=== PATIENT | male | born 1960 | race African-American/Black ===

== ENCOUNTER 2018-01-04 14:51 | Observation (INO) | payer BC, OTHER ==
[2018-01-04] MEDS ORDERED: ASPIRIN 81 MG CHEWABLE TABLET ONE (15:21)
--- NOTE | 2018-01-04 15:54 | RAD REPORT ---
EXAM DESCRIPTION: RAD - Chest Single View - 01/04/2018 3:46 pm CLINICAL HISTORY: Diaphoretic, shortness of breath COMPARISON: None. TECHNIQUE: AP portable chest image was obtained 1542 hours . FINDINGS: No focal lung parenchymal process. No failure or volume overload. No mediastinal or hilar mass or lymphadenopathy suspected. Trachea is midline. Heart and vasculature are normal. No pneumotho rax or measurable pleural effusion. No gross bony abnormality seen. No acute aortic findings suspecte d. IMPRESSION: No acute cardiopulmonary process.
[2018-01-04 15:56] LABS: Absolute Lymphocytes (CBC) 1.8 K/uL (0.7-4.9); Absolute Monocytes 0.5 K/uL (0.1-1.3); Absolute Neutrophil 1.3 K/uL (1.8-8.0); Basophils % 0.8 % (0-1.3); Eosinophils % 2.4 % (0-4.4); Hematocrit 45.2 % (39.6-49.0); Lymphocytes % 48.8 % (15.3-44.8); MCH 23.2 pg (27.0-35.0); MCV 73.8 fL (80-100); MPV 8.7 fL (7.6-11.3); Monocytes % 12.6 % (3.3-12.3); RBC Red Blood Cell Count 6.13 M/uL (4.33-5.43)
[2018-01-04 15:57] LABS: Bicarbonate 26 mEq/L (21-31); Glucose Level 104 mg/dL (65-120); Potassium 4.2 mEq/L (3.6-5.0); Sodium Level 144 mEq/L (135-145)
[2018-01-04 16:04] LABS: ALT/SGPT 26 IU/L (10-60); AST/SGOT 26 IU/L (10-42); Albumin 4.3 g/dL (3.2-5.5); Alkaline Phosphatase 53 IU/L (42-121); BUN Blood Urea Nitrogen 13 mg/dL (6-20); Bilirubin Direct 0.1 mg/dL (0-0.2); Bilirubin Total 0.6 mg/dL (0.3-1.2); Creatine Phosphokinase 846 IU/L (22-269); Magnesium 1.7 mg/dL (1.8-2.5)
[2018-01-04 16:07] LABS: CKMB Creatine Kinase MB 2.9 ng/ml (0.3-4.0)
--- NOTE | 2018-01-04 16:19 | EKG ---
Test Date: 2018-01-04 Test Time: 15:17:38 Animal Eviscerator: YAMILE MEASUREMENT RESULTS: Intervals: Rate: 75 AL: 152 QRSD: 84 QT: 368 QTc: 410 [place]: P: 43 AL: 152 QRS: 38 T: 14 INTERPRETIVE STATEMENTS: Normal sinus rhythm Nonspecific T wave abnormality Abnormal ECG No previous ECG available for comparison Electronically Signed On 01-04-18 16:18:43 CDT by Perry Apple
[2018-01-04] MEDS ORDERED: NA CHLORIDE 0.9% 500 ML ONE (16:29)
[2018-01-04] MEDS ORDERED: ONDANSETRON 4 MG/2 ML VIAL ONE (16:29)
[2018-01-04 16:58] LABS: Protime INR 1.19
[2018-01-04] MEDS ORDERED: Magnesium Sulfate 2gm IVPB 2 G/50 ML BAG IV ONE (17:11)
[2018-01-04] MEDS ORDERED: NA CHLORIDE 0.9% 1,000 ML ONE (17:54)
--- NOTE | 2018-01-04 18:02 | EDPHYS ---
Physician Documentation [facility] Name: Shaka Egan Age: 57 yrs Sex: Male : 1960 Arrival Date: 01/04/2018 Time: 14:58 Bed 28 Private MD: ED Physician Kale Fields HPI: 01/04 15:32 This 57 yrs old Black Male presents to ER via Ambulatory with complaints of Shortness snw Of Breath. 15:32 The patient has shortness of breath at rest. Onset: The symptoms/episode began/occurred snw suddenly. Duration: The symptoms are continuous. The patient's shortness of breath has no apparent modifying factors. Associated signs and symptoms: Pertinent positives: diaphoresis. Severity of symptoms: At their worst the symptoms were moderate. The patient has not experienced similar symptoms in the past. It is unknown whether or not the patient has recently seen a physician, sees Dr. Liriano. Historical: - Allergies: 15:01 No Known Allergies; hj - Home Meds: 15:46 lisinopril 5 mg Oral tab 1 tab once daily [Active]; levothyroxine 50 mcg tab 1 tab once lk1 daily [Active]; simvastatin 20 mg Oral tab 1 tab once daily [Active]; potassium chloride 20 mEq Oral TbER 1 tab once daily [Active]; furosemide 40 mg Oral tab 1 tab once daily [Active]; - PMHx: 15:01 Diabetes - NIDDM; Hypertension; Hyperlipidemia; hj - PSHx: 15:01 None; hj - Immunization history:: Adult Immunizations up to date. - Social history:: Smoking status: Patient/guardian denies using tobacco. ROS: 15:30 Eyes: Negative for injury, pain, redness, and discharge, ENT: Negative for injury, snw pain, and discharge, Neck: Negative for injury, pain, and swelling, Cardiovascular: Negative for chest pain, palpitations, and edema. 15:30 Abdomen/GI: Negative for abdominal pain, nausea, vomiting, diarrhea, and constipation, Back: Negative for injury and pain, : Negative for injury, bleeding, discharge, and swelling, MS/Extremity: Negative for injury and deformity, Neuro: Negative for headache, weakness, numbness, tingling, and seizure. 15:30 Constitutional: Positive for shortness of breath and something just feels "off". 15:30 Respiratory: Positive for shortness of breath, at rest. 15:30 Skin: Positive for diaphoresis. Exam: 15:26 Head/Face: Normocephalic, atraumatic. Eyes: Pupils equal round and reactive to light, snw extra-ocular motions intact. Lids and lashes normal. Conjunctiva and sclera are non-icteric and not injected. Cornea within normal limits. Periorbital areas with no swelling, redness, or edema. ENT: Nares patent. No nasal discharge, no septal abnormalities noted. Tympanic membranes are normal and external auditory canals are clear. Oropharynx with no redness, swelling, or masses, exudates, or evidence of obstruction, uvula midline. Mucous membranes moist. Neck: Trachea midline, no thyromegaly or masses palpated, and no cervical lymphadenopathy. Supple, full range of motion without nuchal rigidity, or vertebral point tenderness. No Meningismus. Chest/axilla: Normal chest wall appearance and motion. Nontender with no deformity. No lesions are appreciated. Cardiovascular: Regular rate and rhythm with a normal S1 and S2. No gallops, murmurs, or rubs. Normal PMI, no JVD. No pulse deficits. 15:26 Back: No spinal tenderness. No costovertebral tenderness. Full range of motion. Skin: Warm, dry with normal turgor. Normal color with no rashes, no lesions, and no evidence of cellulitis. MS/ Extremity: Pulses equal, no cyanosis. Neurovascular intact. Full, normal range of motion. Neuro: Awake and alert, GCS 15, oriented to person, place, time, and situation. Cranial nerves II-XII grossly intact. Motor strength 5/5 in all extremities. Sensory grossly intact. Cerebellar exam normal. Normal gait. 15:26 Constitutional: The patient appears alert, awake, diaphoretic. 15:26 Respiratory: the patient does not display signs of respiratory distress, Respirations: no acute changes, Breath sounds: are clear throughout. Vital Signs: 15:02 BP 186 / 66; Pulse 81; Resp 18; Temp 98.5(TE); Pulse Ox 96% on R/A; Weight 127.01 kg; hj Height 5 ft. 9 in. (175.26 cm); Pain 0/10; 15:23 BP 97 / 65 RA Supine; Pulse 76; Resp 12; Pulse Ox 96% on R/A; lk1 15:30 BP 103 / 77 LA Supine; Pulse 74; Resp 10; Pulse Ox 93% on R/A; lk1 16:00 BP 90 / 65; Pulse 71; Resp 12; Pulse Ox 95% on R/A; lk1 16:30 BP 98 / 63; Pulse 68; Resp 14; Pulse Ox 99% on R/A; lk1 17:00 BP 110 / 74; Pulse 59; Resp 15; Pulse Ox 96% on R/A; lk1 17:30 BP 120 / 73; Pulse 69; Resp 15; Pulse Ox 99% on R/A; Pain 0/10; lk1 18:00 BP 111 / 74; Pulse 65; Resp 15; Pulse Ox 100% on R/A; Pain 0/10; lk1 18:30 BP 117 / 69; Pulse 66; Resp 14; Pulse Ox 99% on R/A; Pain 0/10; lk1 19:00 BP 115 / 79; Pulse 61; Resp 14 S; Pulse Ox 100% on R/A; lk1 20:00 BP 116 / 72; Pulse 66; Resp 15; Pulse Ox 99% on R/A; lk1 15:02 Body Mass Index 41.35 (127.01 kg, 175.26 cm) hj MDM: 15:08 Patient medically screened. snw 17:27 Data reviewed: vital signs, nurses notes. Data interpreted: Pulse oximetry: on room air snw is 93 %. Interpretation: hypoxia. Plan: O2 by NC applied. Counseling: I had a detailed discussion with the patient and/or guardian regarding: the historical points, exam findings, and any diagnostic results supporting the discharge/admit diagnosis, lab results, radiology results, the need for further work-up and treatment in the hospital. Physician consultation: Dr Vargas was called at 17:28, was contacted at 17:28, regarding admission, to the telemetry unit. 01/04 15:08 Order name: Basic Metabolic Panel; Complete Time: 16:14 snw 01/04 15:08 Order name: BNP; Complete Time: 16:48 snw 01/04 15:08 Order name: CBC with Diff; Complete Time: 16:14 snw 01/04 15:08 Order name: Ckmb; Complete Time: 16:14 snw 01/04 15:08 Order name: CPK; Complete Time: 16:14 snw 01/04 15:08 Order name: LFT's; Complete Time: 16:14 snw 01/04 15:08 Order name: Magnesium; Complete Time: 16:14 w 01/04 15:08 Order name: PT-INR; Complete Time: 17:29 w 01/04 15:08 Order name: Ptt, Activated; Complete Time: 17:29 snw 01/04 15:08 Order name: Troponin (emerg Dept Use Only); Complete Time: 16:14 snw 01/04 15:08 Order name: XRAY Chest (1 view); Complete Time: 15:56 w 01/04 16:51 Order name: CT Chest For PE Angio w 01/04 20:19 Order name: Urine Dipstick--Ancillary (enter results) rg2 01/04 20:29 Order name: Urine Dipstick-Ancillary; Complete Time: 20:29 EDMS 01/04 15:08 Order name: EKG; Complete Time: 15:28 w 01/04 15:08 Order name: Cardiac monitoring; Complete Time: 15:28 w 01/04 15:08 Order name: EKG - Nurse/Tech; Complete Time: 15:28 w 01/04 15:08 Order name: IV Saline Lock; Complete Time: 15:28 w 01/04 15:08 Order name: Labs collected and sent; Complete Time: 15:28 w 01/04 15:08 Order name: O2 Per Protocol; Complete Time: 15:28 w 01/04 15:08 Order name: O2 Sat Monitoring; Complete Time: 15:28 w 01/04 15:08 Order name: Urine Dipstick-Ancillary (obtain specimen); Complete Time: 20:02 w 01/04 15:15 Order name: Misc. Order: Please get home meds in computer; Complete Time: 15:42 snw 01/04 18:46 Order name: CT; Complete Time: 18:50 EDMS 01/04 20:56 Order name: EKG; Complete Time: 20:56 w 01/04 16:14 Order name: Labs - recollect needed; Complete Time: 16:28 iw Administered Medications: 15:25 Drug: Aspirin Chewable Tablet 324 mg Route: PO; lk1 15:42 Follow up: Response: No adverse reaction lk1 16:30 Drug: NS 0.9% 500 ml Route: IV; Rate: bolus; Site: left antecubital; lk1 17:15 Follow up: Response: No adverse reaction; IV Status: Completed infusion lk1 16:31 Drug: Zofran 4 mg Route: IVP; Site: left antecubital; lk1 16:50 Follow up: Response: No adverse reaction; Marked relief of symptoms lk1 17:55 Drug: Magnesium Sulfate 1 grams Route: IVPB; Infused Over: 1 hrs; Site: left lk1 antecubital; 18:55 Follow up: Response: No adverse reaction; IV Status: Completed infusion lk1 17:55 Drug: NS 0.9% 1000 ml Route: IV; Rate: 125 ml/hr; Site: left antecubital; lk1 21:32 Follow up: Response: No adverse reaction; IV Status: Infusion continued upon admission lk1 Point of Care Testing: Blood Glucose: 15:02 Blood Glucose: 88 mg/dL; Ranges: Critical Glucose Levels:Adult <50 mg/dl or >400 mg/dl <40 mg/dl or >180 mg/dl Disposition: 01/05 06:58 Co-signature as Attending Physician, Kale Fields MD I agree with the assessment and tx plan of care. Disposition: 18 17:30 Hospitalization ordered by Nayan Glez for Observation. Preliminary diagnosis are Rhabdomyolysis, Hypomagnesemia. - Bed requested for Telemetry/MedSurg (observation). - Status is Observation. lk1 - Condition is Stable. - Problem is new. - Symptoms are unchanged. UTI on Admission? No Signatures: Dispatcher [employer] EDSD Mahnaz Roberts, CEILING INSTALLER-C CEILING INSTALLER-Csnw Eliza Michaels RN RN Juan Carlos Siu RN RN Neida Matthew RN RN lk1 Dana Llamas RN RN df Appiah, William, MD MD wa Corrections: (The following items were deleted from the chart) 01/04 15:46 15:01 Home Meds: Unable to obtain; lk1 19:31 17:30 Hospitalization Ordered by Nayan Glez DO for Observation. Preliminary df diagnosis is Rhabdomyolysis; Hypomagnesemia. Bed requested for Telemetry/MedSurg (observation). Status is Observation. Condition is Stable. Problem is new. Symptoms are unchanged. UTI on Admission? No. snw 21:38 19:31 01/04/2018 17:30 Hospitalization Ordered by Nayan Glez DO for Observation. lk1 Preliminary diagnosis is Rhabdomyolysis; Hypomagnesemia. Bed requested for Telemetry/MedSurg (observation). Status is Observation. Condition is Stable. Problem is new. Symptoms are unchanged. UTI on Admission? No. df
--- NOTE | 2018-01-04 18:02 | ER ---
Nurse's Notes [facility] Name: Shaka Egan Age: 57 yrs Sex: Male : 1960 Arrival Date: 01/04/2018 Time: 14:58 Bed 28 Private MD: Diagnosis: Rhabdomyolysis;Hypomagnesemia Presentation: 01/04 14:58 Presenting complaint: Patient states: karina been sweating profusely for the last few hj minutes, im in a cool environment, i feel sore in both arms; denies numbness and tingling, denies chest pain, reports SOB; denies fever;. Transition of care: patient was not received from another setting of care. Onset of symptoms was January 04, 2018. Initial Sepsis Screen: Does the patient meet any 2 criteria? No. Patient's initial sepsis screen is negative. Does the patient have a suspected source of infection? No. Patient's initial sepsis screen is negative. Care prior to arrival: None. 14:58 Method Of Arrival: Ambulatory 14:58 Acuity: FRANSISCA 3 hj Triage Assessment: 15:01 General: Appears in no apparent distress. uncomfortable, Behavior is calm, cooperative, hj appropriate for age. Pain: Denies pain. Respiratory: Reports shortness of breath Onset: The symptoms/episode began/occurred today, the patient has mild shortness of breath. Historical: - Allergies: 15:01 No Known Allergies; - Home Meds: 15:46 lisinopril 5 mg Oral tab 1 tab once daily [Active]; levothyroxine 50 mcg tab 1 tab once lk1 daily [Active]; simvastatin 20 mg Oral tab 1 tab once daily [Active]; potassium chloride 20 mEq Oral TbER 1 tab once daily [Active]; furosemide 40 mg Oral tab 1 tab once daily [Active]; - PMHx: 15:01 Diabetes - NIDDM; Hypertension; Hyperlipidemia; - PSHx: 15:01 None; hj - Immunization history:: Adult Immunizations up to date. - Social history:: Smoking status: Patient/guardian denies using tobacco. Screenin:46 Abuse screen: Denies threats or abuse. Denies injuries from another. Nutritional lk1 screening: No deficits noted. Tuberculosis screening: No symptoms or risk factors identified. Fall Risk None identified. Assessment: 15:02 Cardiovascular: Rhythm is. Respiratory: Airway is patent Respiratory effort is even, hj unlabored, Respiratory pattern is regular, symmetrical, 15:10 General: Appears in no apparent distress. Behavior is calm, cooperative, appropriate lk1 for age. Pain: Denies pain. Neuro: Level of Consciousness is awake, alert, obeys commands, Oriented to person, place, time, situation, Gait is steady, Speech is normal, Facial symmetry appears normal. Cardiovascular: Heart tones S1 S2 present Capillary refill is brisk Patient's skin is warm and dry. Cardiovascular: Reports diaphoresis, shortness of breath, Chest pain is denied. Respiratory: Airway is patent Respiratory effort is even, unlabored, Respiratory pattern is regular, symmetrical, Breath sounds are clear bilaterally. GI: No signs and/or symptoms were reported involving the gastrointestinal system. GI: Abdomen is round non-distended, Bowel sounds present X 4 quads. : No signs and/or symptoms were reported regarding the genitourinary system. EENT: No signs and/or symptoms were reported regarding the EENT system. Derm: No signs and/or symptoms reported regarding the dermatologic system. Musculoskeletal: No signs and/or symptoms reported regarding the musculoskeletal system. Vital Signs: 15:02 BP 186 / 66; Pulse 81; Resp 18; Temp 98.5(TE); Pulse Ox 96% on R/A; Weight 127.01 kg; hj Height 5 ft. 9 in. (175.26 cm); Pain 0/10; 15:23 BP 97 / 65 RA Supine; Pulse 76; Resp 12; Pulse Ox 96% on R/A; lk1 15:30 BP 103 / 77 LA Supine; Pulse 74; Resp 10; Pulse Ox 93% on R/A; lk1 16:00 BP 90 / 65; Pulse 71; Resp 12; Pulse Ox 95% on R/A; lk1 16:30 BP 98 / 63; Pulse 68; Resp 14; Pulse Ox 99% on R/A; lk1 17:00 BP 110 / 74; Pulse 59; Resp 15; Pulse Ox 96% on R/A; lk1 17:30 BP 120 / 73; Pulse 69; Resp 15; Pulse Ox 99% on R/A; Pain 0/10; lk1 18:00 BP 111 / 74; Pulse 65; Resp 15; Pulse Ox 100% on R/A; Pain 0/10; lk1 18:30 BP 117 / 69; Pulse 66; Resp 14; Pulse Ox 99% on R/A; Pain 0/10; lk1 19:00 BP 115 / 79; Pulse 61; Resp 14 S; Pulse Ox 100% on R/A; lk1 20:00 BP 116 / 72; Pulse 66; Resp 15; Pulse Ox 99% on R/A; lk1 15:02 Body Mass Index 41.35 (127.01 kg, 175.26 cm) ED Course: 14:58 Patient arrived in ED. hj 15:00 Triage completed. hj 15:02 Arm band placed on right wrist. hj 15:08 Mahnaz Roberts FNP-C is PHCP. snw 15:08 Kale Fields MD is Attending Physician. snw 15:17 Neida Matthew, EMMETT is Primary Nurse. lk1 15:32 EKG done, by food technician. reviewed by Mahnaz LARSEN. dt2 15:45 X-ray completed. Portable x-ray completed in exam room. Patient tolerated procedure ml well. 15:46 XRAY Chest (1 view) In Process Unspecified. EDMS 15:47 Patient has correct armband on for positive identification. Bed in low position. Call lk1 light in reach. Side rails up X 1. Adult w/ patient. equipment monitor phototypesetting on. Pulse ox on. NIBP on. 17:29 Nayan Glez DO is Hospitalizing Provider. snw 20:42 No provider procedures requiring assistance completed. Patient admitted, IV remains in lk1 place. No redness/swelling at site. Administered Medications: 15:25 Drug: Aspirin Chewable Tablet 324 mg Route: PO; lk1 15:42 Follow up: Response: No adverse reaction lk1 16:30 Drug: NS 0.9% 500 ml Route: IV; Rate: bolus; Site: left antecubital; lk1 17:15 Follow up: Response: No adverse reaction; IV Status: Completed infusion lk1 16:31 Drug: Zofran 4 mg Route: IVP; Site: left antecubital; lk1 16:50 Follow up: Response: No adverse reaction; Marked relief of symptoms lk1 17:55 Drug: Magnesium Sulfate 1 grams Route: IVPB; Infused Over: 1 hrs; Site: left lk1 antecubital; 18:55 Follow up: Response: No adverse reaction; IV Status: Completed infusion lk1 17:55 Drug: NS 0.9% 1000 ml Route: IV; Rate: 125 ml/hr; Site: left antecubital; lk1 21:32 Follow up: Response: No adverse reaction; IV Status: Infusion continued upon admission lk1 Point of Care Testing: Blood Glucose: 15:02 Blood Glucose: 88 mg/dL; Ranges: Outcome: 17:30 Decision to Hospitalize by Provider. snw 21:33 Admitted to Med/surg accompanied by tech, via wheelchair, room 217, with chart, Report lk1 called to RN 21:33 Condition: good 21:33 Discharge instructions given to patient, family, Instructed on the need for admit, Demonstrated understanding of instructions. 21:38 Patient left the ED. lk1 Signatures: Dispatcher [employer] EDMS Mahnaz Roberts, SHERIF-C CUSTOM MILLER-Jacqui Rodriguez Henry, RN RN Neida Matthew RN RN lk1 Erica Willoughby dt2 Corrections: (The following items were deleted from the chart) 15:46 15:01 Home Meds: Unable to obtain; lk1 18:14 18:01 BP 120 / 73; Pulse 69bpm; Resp 15bpm; Pulse Ox 99% RA; Pain 0/10; lk1 lk1
--- NOTE | 2018-01-04 18:45 | RAD REPORT ---
EXAM DESCRIPTION: CT - Chest For Pe Angio - 01/04/2018 6:25 pm CLINICAL HISTORY: Dyspnea, diaphoresis, shortness of breath, history of hypertension COMPARISON: Portable chest same date TECHNIQUE: Dynamically enhanced 3 mm thick images of the chest were obtained during administration o f approximately 150mL Isovue 370 IV contrast. Coronal and oblique reconstruction images were generate d and reviewed. Exam utilizes a protocol to evaluate the pulmonary arterial tree. All CT scans are performed using dose optimization technique as appropriate and may include automated exposure control or mA/KV adjustment according to patient size. FINDINGS: No pulmonary emboli are identified. The aorta as imaged shows no acute or suspicious finding. No pericardial thickening or effusion. Hear t size is upper normal. No ventriculomegaly for myocardial hyperplasia. No infiltrate or mass in the lung parenchyma. No pleural effusion or pleural thickening. No mediastinal or hilar suspicious masses. No chest wall masses or abnormal axillary lymphadenopathy. Bony degenerative changes are present. No pathologic or acute bone process seen. IMPRESSION: No pulmonary emboli identified. No other significant or suspicious findings.
[2018-01-04 20:29] LABS: Urine Blood 1+ (NEG); Urine Glucose 2+ (NEG); Urine Protein NEGATIVE (NEG); Urine Specific Gravity <1.005 (1.005-1.030); Urine pH 5.5 (5.0-7.0)
[2018-01-04] MEDS ORDERED: ACETAMINOPHEN 500 MG TAB PO PRN (21:03)
[2018-01-04] MEDS: NA CHLORIDE 0.9% 1,000 ML IV SCH (21:55)
[2018-01-05] MEDS: NA CHLORIDE 0.9% 1,000 ML IV SCH (05:13)
--- NOTE | 2018-01-05 05:20 | P.HP ---
Certification for Inpatient Patient admitted to: Observation With expected LOS: <2 Midnights Practitioner: I am a practitioner with admitting privileges, knowledge of patient current condition, hospital course, and medical plan of care. Services: Services provided to patient in accordance with Admission requirements found in Title 42 Section 412.3 of the Code of Federal Regulations Patient History Date of Service: 01/04/18 Reason for admission: dehydration History of Present Illness: Mr Egan is a 57 years old male with history of DM II, HTN, who after been working in a yard today, start feeling weak, become diaphoretic, and had some SOB. He denied any chest pain. No history of cough, nausea, vomiting fever or chills. In ER work up shows EKG with non-specific T waves abnormalities, low WBC count, no fever, CTA report no PE, no infiltrate. After receive a bag of IV fluids, the patient start feeling better. Allergies No Known Allergies Allergy (Verified 01/04/18 22:01) Home Medications: Empagliflozin [Jardiance] 10 mg PO DAILY 01/04/18 Furosemide 40 mg PO DAILY 01/04/18 Levothyroxine [Synthroid] 50 mcg PO [id number] 01/04/18 Lisinopril [Prinivil*] 5 mg PO DAILY 01/04/18 Metformin ER [Glucophage ER] 500 mg PO DAILY 01/04/18 Potassium Chloride 20 meq PO DAILY 01/04/18 Simvastatin 20 mg PO DAILY 01/04/18 - Past Medical/Surgical History Has patient received pneumonia vaccine in the past: Yes Diabetic: Yes -: Diabetes-NIDDM -: Hypertension -: Hyperlipidemia Past Surgical History: Reviewed- Non-Contributory - Family History Family History: Reviewed- Non-Contributory - Social History Smoking Status: Never smoker Alcohol use: Yes CD- Drugs: No Caffeine use: Yes Place of Residence: Home Review of Systems 10-point ROS is otherwise unremarkable Physical Examination - Vital Signs Temperature: 97.6 F Blood Pressure: 125/68 Pulse: 86 Respirations: 18 Pulse Ox (%): 95 - Physical Exam General: Alert, In no apparent distress HEENT: Atraumatic, PERRLA, Mucous membr. moist/pink, EOMI, Sclerae nonicteric Neck: Supple, 2+ carotid pulse no bruit, No LAD, Without JVD or thyroid abnormality Respiratory: Clear to auscultation bilaterally, Normal air movement Cardiovascular: Regular rate/rhythm, Normal S1 S2 Gastrointestinal: Normal bowel sounds, No tenderness Musculoskeletal: No tenderness Integumentary: No rashes Neurological: Normal gait, Normal speech, Normal strength at 5/5 x4 extr, Normal tone, Normal affect Lymphatics: No axilla or inguinal lymphadenopathy - Studies Laboratory Data (last 24 hrs) 01/04/18 16:19: PT 14.1 H, INR 1.19, APTT 26.5 01/04/18 15:31: WBC 3.7 L, Hgb 14.2, Hct 45.2, Plt Count 215 01/04/18 15:31: B-Natriuretic Peptide < 10 01/04/18 15:31: Sodium 144, Potassium 4.2, BUN 13, Creatinine 1.02, Glucose 104 , Magnesium 1.7 L, Total Bilirubin 0.6, AST 26, ALT 26, Alkaline Phosphatase 53 Assessment and Plan - Problems (Diagnosis) (1) Diabetes mellitus Current Visit: Yes Status: Acute Qualifiers: Diabetes mellitus type: type 2 Diabetes mellitus termite treater helper insulin use: without termite treater helper use Diabetes mellitus complication status: with unspecified complications Qualified Code(s): E11.8 - Type 2 diabetes mellitus with unspecified complications (2) HTN (hypertension) Current Visit: Yes Status: Acute Qualifiers: Hypertension type: essential hypertension Qualified Code(s): I10 - Essential (primary) hypertension (3) Volume depletion Current Visit: Yes Status: Acute - Plan Mr Egan will be admitted to the hospital due to volume depletion. He start feeling better after IV NS infusion. No obvious signs of infection. CAT chest showed no PE. Will evaluate overnight his response to fluids and resolution of symptoms. Eventually will go home in AM. - Advance Directives Does patient have a Living Will: No Does patient have a Durable POA for Healthcare: No - Code Status/Comfort Care Code Status Assessed: Yes Code Status: Full Code
[2018-01-05 06:45] LABS: Absolute Lymphocytes (CBC) 1.9 K/uL (0.7-4.9); Absolute Monocytes 0.8 K/uL (0.1-1.3); Absolute Neutrophil 3.3 K/uL (1.8-8.0); Basophils % 0.6 % (0-1.3); Eosinophils % 2.1 % (0-4.4); Hematocrit 41.4 % (39.6-49.0); Lymphocytes % 30.5 % (15.3-44.8); MCV 75.5 fL (80-100); MPV 8.7 fL (7.6-11.3); RBC Red Blood Cell Count 5.48 M/uL (4.33-5.43)
[2018-01-05 07:04] LABS: BUN Blood Urea Nitrogen 13 mg/dL (6-20); Bicarbonate 28 mEq/L (21-31); Glucose Level 93 mg/dL (65-120); Potassium 4.5 mEq/L (3.6-5.0); Sodium Level 143 mEq/L (135-145)
--- NOTE | 2018-01-05 08:25 | EKG ---
Test Date: 2018-01-04 Test Time: 21:00:34 [employer] Contact Printer: ARDEN MEASUREMENT RESULTS: Intervals: Rate: 63 OK: 164 QRSD: 88 QT: 384 QTc: 392 Fowler: P: 61 OK: 164 QRS: 53 T: 17 INTERPRETIVE STATEMENTS: Normal sinus rhythm Possible Left atrial enlargement Nonspecific T wave abnormality Abnormal ECG Compared to ECG 01/04/2018 15:17:38 No significant changes Electronically Signed On 01-05-18 08:23:27 CDT by Perry Apple
[2018-01-05] MEDS ORDERED: ASPIRIN EC 81 MG TAB PO SCH (09:00)
--- NOTE | 2018-01-05 10:56 | P.DS ---
Admission Date: 01/04/18 Discharge Date: 01/05/18 Disposition: ROUTINE DISCHARGE Discharge Condition: GOOD Reason for Admission: dehydration Consultations: cardiology Dr Apple Brief History of Present Illness: Mr Egan is a 57 years old male with history of DM II, HTN, who after been working in a yard today, start feeling weak, become diaphoretic, and had some SOB. He denied any chest pain. No history of cough, nausea, vomiting fever or chills. In ER work up shows EKG with non-specific T waves abnormalities, low WBC count, no fever, CTA report no PE, no infiltrate. After receive a bag of IV fluids, the patient start feeling better. Hospital Course: Patient was started on IV hydration.He was monitored on telemetry.His CK enzymes trended down.Symptoms improved and he was cleared by cardiology and discharged home in a stable condition. Vital Signs/Physical Exam: Temp Pulse Resp BP Pulse Ox 97.6 F 86 18 125/68 95 01/05/18 05:25 01/05/18 05:25 01/05/18 05:25 01/05/18 05:25 01/05/18 05:25 General: Alert, In no apparent distress, Oriented x3 HEENT: Atraumatic, Normocephalic Neck: Supple, JVD not distended, No Thyromegaly, No LAD Respiratory: Clear to auscultation bilaterally, Normal air movement Cardiovascular: No edema, Normal pulses, Regular rate/rhythm, Normal S1 S2, No gallops, No rubs, No murmurs Gastrointestinal: Normal bowel sounds, Soft and benign, W/out hepatosplenomegaly , No ascites, No tenderness Musculoskeletal: No clubbing, No swelling, No contractures, No erythema, No tenderness, No warmth Neurological: Normal strength at 5/5 x4 extr, Normal tone, Sensation intact Laboratory Data at Discharge: WBC 6.2 K/uL (4.3-10.9) D 01/05/18 06:08 Hgb 12.6 g/dL (13.6-17.9) L 01/05/18 06:08 Hct 41.4 % (39.6-49.0) 01/05/18 06:08 Plt Count 231 K/uL (152-406) 01/05/18 06:08 PT 14.1 SECONDS (9.5-12.5) H 01/04/18 16:19 INR 1.19 01/04/18 16:19 APTT 26.5 SECONDS (24.3-36.9) 01/04/18 16:19 Sodium 143 mEq/L (135-145) 01/05/18 06:08 Potassium 4.5 mEq/L (3.6-5.0) 01/05/18 06:08 BUN 13 mg/dL (6-20) 01/05/18 06:08 Creatinine 0.96 mg/dL (0.61-1.24) 01/05/18 06:08 Glucose 93 mg/dL (65-120) 01/05/18 06:08 Magnesium 1.7 mg/dL (1.8-2.5) L 01/04/18 15:31 Total Bilirubin 0.6 mg/dL (0.3-1.2) 01/04/18 15:31 AST 26 IU/L (10-42) 01/04/18 15:31 ALT 26 IU/L (10-60) 01/04/18 15:31 Alkaline Phosphatase 53 IU/L (42-121) 01/04/18 15:31 Troponin I < 0.03 ng/mL (<0.03) 01/05/18 00:41 B-Natriuretic Peptide < 10 pg/ml (<=100) 01/04/18 15:31 Home Medications: Empagliflozin [Jardiance] 10 mg PO DAILY 01/04/18 Furosemide 40 mg PO DAILY 01/04/18 Levothyroxine [Synthroid*] 50 mcg PO [id number] 01/04/18 Lisinopril [Prinivil*] 5 mg PO DAILY 01/04/18 Metformin ER [Glucophage ER*] 500 mg PO DAILY 01/04/18 Potassium Chloride 20 meq PO DAILY 01/04/18 Simvastatin 20 mg PO DAILY 01/04/18 Patient Discharge Instructions: Follow up with PCP in one week. stay hydrated. return to ER with new or worsening symptoms Diet: ADA Activity: Ad elly Physician Review: Patient Assessed, Agree with Above Assessment and Plan Time spent managing pt's care (in minutes): 30
--- NOTE | 2018-01-05 12:18 | EKG ---
Test Date: 2018-01-05 Test Time: 07:32:11 Header Set Up Operator: GREGORIO MEASUREMENT RESULTS: Intervals: Rate: 70 DE: 160 QRSD: 90 QT: 376 QTc: 406 Randolph: P: 56 DE: 160 QRS: 46 T: 11 INTERPRETIVE STATEMENTS: Normal sinus rhythm Nonspecific T wave abnormality Abnormal ECG Compared to ECG 01/04/2018 21:00:34 No significant changes Electronically Signed On 01-05-18 12:17:31 CDT by Perry Apple
--- NOTE | 2018-01-05 12:40 | CON ---
Identification: A 57-year-old man. Chief Complaint: Sweating. History Of Present Illness: Mr. Egan is a gentleman, who has diabetes and hypertension and dyslip idemia. No history of heart disease. He was working as a lawn and yard care businessman. He was ou tside, doing a lot of physical work. He never checks his blood sugar on his own, but he went to work without eating or drinking anything for breakfast or lunch and about 2:30 in the afternoon, he had f inished the job, was sitting in his truck when he started sweating. He started feeling jittery. Eloina rything was better as soon as he got to the emergency room had an IV done. The patient has not had a spell like that. There was no chest pain since he has been in the hospital. B-natriuretic peptide is normal. Blood sugars are 104 and 93. Cardiac enzymes are all normal. Total CK is elevated at 84 6 and 532, consistent with skeletal muscle injury. His initial blood pressure when he came to the [facility] was 97/65, later 90/65, and this morning after fluid hydration, it is 125/68, heart rate 68. The patient uses no tobacco. No illegal drugs. Physical Examination: Vital Signs: 5 feet 9 inches, 279 pounds. General: Obese, alert, oriented, pleasant. Lungs: Clear. Cardiac: Normal. Neck: Carotids, no bruit. Abdomen: Soft. Extremities: normal distal pulses. Outpatient Medications: Potassium chloride, simvastatin, lisinopril levothyroxine, furosemide, metfo rmin, and empagliflozin or Jardiance 10 mg daily. Impression: The patient probably got very dehydrated. He takes both Lasix and empagliflozin. Both medicines can cause dehydration. Under ideal circumstances, Mr. Egan was working outdoors on a hu mid day and not eating or drinking, so I think, we have a good explanation for his symptoms and it mi ght be good to do some outpatient testing. None of those needs to be done now. He has demonstrated, he is stable enough to go home. I would consider discontinuing the furosemide and giving him carefu l instructions to avoid habits that get him so dehydrated like he was. Nothing on the EKG or enzymes would suggest he requires further hospitalization. After Dr. Liriano sees him, perhaps make some adj ustments. He could probably have an outpatient echo and stress test. Thank you very much for your kind referral of Mr. Egan. I will follow him with you. NEETU Voice ID: [id number] Report ID: [id number]
== END 2018-01-05 12:35 | disposition home or self-care (01) ==
LOC: ER 14:51 → ERHOLD 17:31 → 2ND 19:42
PROVIDERS: ADMIT Internal Medicine; ATTEND Internal Medicine
DX: E86.0 Dehydration (principal); E11.9 Type 2 diabetes mellitus without complications; I10 Essential (primary) hypertension; E78.5 Hyperlipidemia, unspecified
CPT/HCPCS: 36415; 71045; 71275; 80048; 80076; 81003; 82550; 82553; 82962; 83735; 83880; 84443; 84484; 85025; 85610; 85730; 93005; 96361; 96365; 96375; 99285; G0378; J2405; J3475; J7030; Q9967

== ENCOUNTER 2024-08-31 16:09 | Emergency (ER) | payer OTHER ==
[2024-08-31 17:20] LABS: SARS-CoV-2 Antigen CONTROL BLUE LINE VIS/BG OK; SARS-CoV-2 Antigen Rapid Res Negative (Negative)
--- NOTE | 2024-08-31 17:39 | RAD REPORT ---
EXAM: Chest Pa And Lat (2 Views) HISTORY: Congestion;Cough COMPARISON: 01/04/2018 FINDINGS: LUNGS/PLEURA: Mild opacities are present in the lingula. MEDIASTINUM: The mediastinal silhouette is within normal limits. CARDIAC: The cardiac silhouette is within normal limits. UPPER ABDOMEN: No significant abnormality. BONES: No acute fracture. LINES/TUBES/OTHER: N/A IMPRESSION: Mild opacities in the lingula could reflect mild or early pneumonia.
[2024-08-31] MEDS ORDERED: ALBUTEROL 2.5 MG/3 ML NEB SOL ONE (17:57)
[2024-08-31] MEDS ORDERED: IPRATROPIUM BROM 0.5MG/2.5ML ONE (17:57)
--- NOTE | 2024-08-31 17:57 | EDPHYS ---
Physician Documentation [facility] Name: Shaka Egan Age: 63 yrs Sex: Male : 1960 Arrival Date: 08/31/2024 Time: 16:09 Bed 18 Private MD: ED Physician Matty Gomez HPI: 08/31 16:59 This 63 yrs old Black Male presents to ER via Ambulatory with complaints of Cough, sb4 Congestion, Wheezing. 17:31 Patient reports cough, congestion, and wheezing for about 3 to 4 days now. States that sb4 his mother is currently hospitalized with RSV. He just wants to make sure that he is not going to spread anything to her when she gets home. He denies any chest pain or shortness of breath. Historical: - Allergies: 16:40 No Known Allergies; hb - PMHx: 16:40 Diabetes - NIDDM; Hyperlipidemia; Hypertension; hb - PSHx: 16:40 None; hb - Immunization history:: Adult Immunizations not immunized. - Infectious Disease History:: Denies. - Social history:: Smoking status: Patient denies any tobacco usage or history of. ROS: 17:31 Constitutional: Negative for fever, chills, and weight loss, sb4 17:31 ENT: Positive for sinus congestion, 17:31 Respiratory: Positive for cough, wheezing, 17:31 All other systems are negative, Exam: 17:31 Constitutional: This is a well developed, well nourished patient who is awake, alert, sb4 and in no acute distress. Head/Face: Normocephalic, atraumatic. Eyes: Extra-ocular motions intact. Periorbital areas with no swelling, redness, or edema. ENT: Mucous membranes moist. Cardiovascular: Regular rate and rhythm with a normal S1 and S2. Abdomen/GI: Soft, non-tender, no distension. Skin: Warm, dry with normal turgor. Normal color with no rashes, no lesions, and no evidence of cellulitis. 17:31 Respiratory: the patient does not display signs of respiratory distress, Respirations: normal, Breath sounds: bronchial sounds, that are moderate, are heard diffusely, Vital Signs: 16:39 BP 184 / 98; Pulse 84; Resp 18; Temp 97.7(TE); Pulse Ox 94% on R/A; Weight 124.74 kg; hb Height 5 ft. 9 in. ; Pain 2/10; 18:10 BP 172 / 84; Pulse 93; Resp 18; Pulse Ox 100% on 8 lpm Nebulizer Mask; ld1 16:39 Body Mass Index 40.61 (124.74 kg, 175.26 cm) hb 16:39 Pain Scale: Adult hb MDM: 16:38 Medical Screening Exam initiated sb4 17:40 Data reviewed: vital signs, nurses notes, lab test result(s), radiologic studies, and sb4 as a result, I will discharge patient. Counseling: I had a detailed discussion with the patient and/or guardian regarding the historical points, exam findings, and any diagnostic results supporting the discharge/admit diagnosis, lab results, radiology results, to return to the emergency department if symptoms worsen or persist or if there are any questions or concerns that arise at home. 08/31 16:43 Order name: SARS RAPID; Complete Time: 17:26 sb4 08/31 16:43 Order name: Flu; Complete Time: 17:26 sb4 08/31 16:43 Order name: RSV; Complete Time: 17:26 sb4 08/31 16:43 Order name: Chest Pa And Lat (2 Views) XRAY; Complete Time: 17:40 sb4 Administered Medications: 18:09 Drug: DuoNeb Nebulize (3:1) (2.5 mg - 0.5 mg) 3 ml Nebulizer once Route: Nebulizer; ld1 18:24 Follow up: Response: No adverse reaction ld1 18:09 Drug: Rocephin (cefTRIAXone) IM 1 grams IM once Route: IM; Site: right deltoid; ld1 18:23 Follow up: Response: No adverse reaction ld1 18:09 Drug: AZITHromycin PO 500 mg PO once Route: PO; ld1 18:23 Follow up: Response: No adverse reaction ld1 Disposition: 21:25 Co-signature as Attending Physician, Matty Gomez MD I agree with the assessment and jarrod plan of care. Disposition Summary: 08/31/24 17:56 Discharge Ordered Notes: Location: Home sb4 Problem: an ongoing problem sb4 Symptoms: have improved sb4 Condition: Stable sb4 Diagnosis - Respiratory syncytial virus as the cause of diseases classified elsewhere sb4 - Pneumonia, unspecified organism sb4 Followup: sb4 - With: Emergency Department - When: As needed - Reason: Trouble breathing, Worsening of condition Discharge Instructions: - Discharge Summary Sheet sb4 - Community-Acquired Pneumonia, Adult, [id number] sb4 - Respiratory Syncytial Virus Infection, Adult sb4 Forms: - Antibiotic Education sb4 - Patient Portal Instructions sb4 - Leadership Thank You Letter sb4 Prescriptions: - albuterol sulfate 90 mcg/actuation Inhalation HFA Aerosol Inhaler - inhale 1 inhalation INHALATION route every 4 to 6 hours as needed for sb4 wheezing/sob; 1 Applicator; Refills: 0, Product Selection Permitted - azithromycin 250 mg Oral tablet - take 1 tablet ORAL route daily for 4 days start on day 2 of therapy; 4 tablet; sb4 Refills: 0, Product Selection Permitted - Augmentin 875-125 mg Oral tablet - take 1 tablet ORAL route every 12 hours for 7 days; 14 tablet; Refills: 0, sb4 Product Selection Permitted Signatures: Dispatcher [employer] EDMS Matty Gomez MD MD cha Baxter, Heather RN RN Negar Strickland RN RN ld1 Rosie Yoo PA-C PA-C sb4 Corrections: (The following items were deleted from the chart) 16:43 16:43 SARS-COV-2 Antigen Rapid+I.LAB.BRZ ordered. EDMS EDMS 16:43 16:43 Influenza Screen (A \T\ B)+BA.LAB.BRZ ordered. EDMS EDMS 16:43 16:43 Respiratory Syncytial Virus Ag+BA.LAB.BRZ ordered. EDMS EDMS 16:44 16:44 Chest Pa And Lat (2 Views)+RAD.RAD.BRZ ordered. EDMS EDMS
--- NOTE | 2024-08-31 17:57 | ER ---
Nurse's Notes [facility] Name: Shaka Egan Age: 63 yrs Sex: Male : 1960 Arrival Date: 08/31/2024 Time: 16:09 Bed 18 Private MD: Diagnosis: Respiratory syncytial virus as the cause of diseases classified elsewhere;Pneumonia, unspecified organism Presentation: 08/31 16:39 Chief complaint: Cough, congestin, and SOB x 3 days. Coronavirus screen: Client hb presents with at least one sign or symptom that may indicate coronavirus-19. Provider contacted for isolation considerations. Ebola Screen: No symptoms or risks identified at this time. Initial Sepsis Screen: Does the patient meet any 2 criteria? No. Patient's initial sepsis screen is negative. Does the patient have a suspected source of infection? No. Patient's initial sepsis screen is negative. Risk Assessment: Do you want to hurt yourself or someone else? Patient reports no desire to harm self or others. Onset of symptoms was August 28, 2024. 16:39 Method Of Arrival: Ambulatory hb 16:43 Acuity: FRANSISCA 3 hb Historical: - Allergies: 16:40 No Known Allergies; hb - PMHx: 16:40 Diabetes - NIDDM; Hyperlipidemia; Hypertension; hb - PSHx: 16:40 None; hb - Immunization history:: Adult Immunizations not immunized. - Infectious Disease History:: Denies. - Social history:: Smoking status: Patient denies any tobacco usage or history of. Screenin:10 [facility] ED Fall Risk Assessment (Adult) History of falling in the last 3 months, ld1 including since admission No falls in past 3 months (0 pts) Confusion or Disorientation No (0 pts) Intoxicated or Sedated No (0 pts) Impaired Gait No (0 pts) Mobility Assist Device Used No (0 pt) Altered Elimination No (0 pt) Score/Fall Risk Level 0 - 2 = Low Risk Oriented to surroundings, Maintained a safe environment, Educated pt \T\ family on fall prevention, incl call for assistance when getting out of bed, Assessed \T\ reinforced patient's understanding of fall precautions, Provided non-skid footwear, Hourly rounding (assess needs \T\ fall precautionary measures) done, Used ambulatory aids as needed (educated on \T\ assisted with), Used gait belt as appropriate. Abuse screen: Denies threats or abuse. Denies injuries from another. Nutritional screening: No deficits noted. Tuberculosis screening: No symptoms or risk factors identified. Assessment: 18:10 General: Appears in no apparent distress. comfortable, Behavior is calm, cooperative, ld1 appropriate for age. Pain: Denies pain. Neuro: Level of Consciousness is awake, alert, obeys commands, Oriented to person, place, time, situation, Appropriate for age. Cardiovascular: Capillary refill < 3 seconds Patient's skin is warm and dry. Respiratory: Airway is patent Respiratory effort is even, unlabored, Breath sounds with wheezes bilaterally. GI: No signs and/or symptoms were reported involving the gastrointestinal system. : No signs and/or symptoms were reported regarding the genitourinary system. EENT: No signs and/or symptoms were reported regarding the EENT system. Derm: No signs and/or symptoms reported regarding the dermatologic system. Musculoskeletal: No signs and/or symptoms reported regarding the musculoskeletal system. Vital Signs: 16:39 BP 184 / 98; Pulse 84; Resp 18; Temp 97.7(TE); Pulse Ox 94% on R/A; Weight 124.74 kg; hb Height 5 ft. 9 in. ; Pain 2/10; 18:10 BP 172 / 84; Pulse 93; Resp 18; Pulse Ox 100% on 8 lpm Nebulizer Mask; ld1 16:39 Body Mass Index 40.61 (124.74 kg, 175.26 cm) hb 16:39 Pain Scale: Adult hb ED Course: 16:13 Patient arrived in ED. mr 16:17 Rosie Yoo PA-C is PHCP. sb4 16:17 Matty Gomez MD is Attending Physician. sb4 16:42 Arm band placed on. hb 16:43 Triage completed. hb 17:35 Chest Pa And Lat (2 Views) XRAY In Process Unspecified. EDMS 17:54 Negar Strickland, EMMETT is Primary Nurse. ld1 18:10 Patient has correct armband on for positive identification. Placed in gown. Bed in low ld1 position. Call light in reach. Side rails up X2. pvc monitor on. Pulse ox on. NIBP on. Door closed. Noise minimized. Warm blanket given. 18:10 No provider procedures requiring assistance completed. Patient did not have IV access ld1 during this emergency room visit. Administered Medications: 18:09 Drug: DuoNeb Nebulize (3:1) (2.5 mg - 0.5 mg) 3 ml Nebulizer once Route: Nebulizer; ld1 18:24 Follow up: Response: No adverse reaction ld1 18:09 Drug: Rocephin (cefTRIAXone) IM 1 grams IM once Route: IM; Site: right deltoid; ld1 18:23 Follow up: Response: No adverse reaction ld1 18:09 Drug: AZITHromycin PO 500 mg PO once Route: PO; ld1 18:23 Follow up: Response: No adverse reaction ld1 Medication: 18:10 VIS not applicable for this client. ld1 Outcome: 17:56 Discharge ordered by . sb4 18:24 Discharged to home ambulatory, ld1 18:24 Condition: stable 18:24 Discharge instructions given to patient, Instructed on discharge instructions, ld1 Demonstrated understanding of instructions, follow-up care, medications, Prescriptions given X 3, 18:29 Patient left the ED. ld1 Signatures: Dispatcher [employer] EDDE Mel Pedroza, Michele [facility] mr Alicia Alanis, RN RN Negar Strickland RN RN ld1 Rosie Yoo, PA-C PA-C sb4
[2024-08-31] MEDS ORDERED: LIDOCAINE 2% MPF 5 ML VIAL ONE (17:58)
[2024-08-31] MEDS ORDERED: AZITHROMYCIN 250 MG TAB ONE (17:58)
[2024-08-31] MEDS ORDERED: CEFTRIAXONE 1000 MG/VIAL ONE (17:58)
[2024-08-31 20:03] VITALS: TEMP 97.7
[2024-08-31 20:05] VITALS: BP 172/84; O2SAT 100
== END 2024-08-31 18:29 | disposition home or self-care (01) ==
LOC: ER 16:09
DX: J18.9 Pneumonia, unspecified organism (principal); B97.4 Respiratory syncytial virus as the cause of diseases classified elsewhere; Z11.52 Encounter for screening for COVID-19
CPT/HCPCS: 36415; 87807; 87804 ×2; 71046; 96372; 99285; 87811; J7613; J7644; J2003; J0696